=== PATIENT | male | born 1945 | race Caucasian/White ===

== ENCOUNTER 2016-08-03 15:16 | Emergency (ER) | payer MEDICARE, BC ==
[~2016-08-03] VITALS: Ht 175.3 cm; Wt 112.0 kg
[2016-08-03] MEDS ORDERED: PANTOPRAZOLE SO40 MG PO (17:17)
[2016-08-03] MEDS ORDERED: METOPROL TAR100 MG PO (17:17)
[2016-08-03] MEDS ORDERED: AMLODIPINE5 MG PO (17:18)
[2016-08-03] MEDS ORDERED: DOCUSATE CAL240 MG PO (17:18)
[2016-08-03] MEDS ORDERED: TRAZODONE50 MG PO (17:18)
[2016-08-03] MEDS ORDERED: C 250 PO (17:18)
[2016-08-03] MEDS ORDERED: DIGOXIN0.125 MG PO (17:18)
[2016-08-03] MEDS ORDERED: FINASTERIDE5 MG PO (17:19)
[2016-08-03] MEDS ORDERED: FERROUS SULF325 M2 PO (17:19)
[2016-08-03] MEDS ORDERED: LAMICTAL ODT100 MG PO (17:19)
[2016-08-03 18:05] LABS: HEMATOCRIT 44.3 % (39.0-50.0); HEMOGLOBIN 13.5 g/dl (14.0-18.0); IMMATURE GRANULOCYTES 0.7 % (0.0-1.0); MEAN CELL VOLUME 79.4 fL CALC (80.0-100.0); MEAN CORPUSCULAR HGB 24.2 pG CALC (26.0-32.0); MEAN CORPUSCULAR HGB CONC 30.5 g/L CALC (32.0-36.0); NEUT# 5.13 thou/uL (1.82-7.42); RED BLOOD COUNT 5.58 mill/uL (4.70-6.10)
[2016-08-03 18:06] LABS: URINE BILIRUBIN - DIPSTICK NEGATIVE (NEGATIVE); URINE BLOOD DIPSTICK NEGATIVE (NEGATIVE); URINE CLARITY CLEAR; URINE COLOR YELLOW; URINE GLUCOSE - DIPSTICK NEGATIVE (NEGATIVE); URINE KETONE NEGATIVE (NEGATIVE); URINE LEUK ESTERASE NEGATIVE (NEGATIVE); URINE NITRITE - DIPSTICK NEGATIVE (Negative); URINE PH 5.5 (4.5-8.0); URINE PROTEIN - DIPSTICK TRACE mg/dL (NEG-TRACE); URINE UROBILINOGEN - DIPSTICK 0.2 E.U./dL (0.2)
[2016-08-03 18:39] LABS: ALBUMIN 4.1 g/dL (3.2-5.0); ALKALINE PHOSPHATASE 73 u/l (38-126); ANION GAP 18 (6-22 (CALC)); BILIRUBIN, TOTAL 0.5 mg/dL (0.0-1.4); BUN 13 mg/dL (8-23); BUN/CREATININE RATIO 15 (12-20 (CALC)); CALCIUM 9.6 mg/dL (8.4-10.2); CARBON DIOXIDE 30 mmol/l (22-30); CHLORIDE 99 mmol/l (95-108); CREATININE 0.9 mg/dL (0.7-1.3); GFR > 60 ML/MIN (>=60 (CALC)); GFR FOR AFR.AMER. > 60 ML/MIN (>=60 (CALC)); GLUCOSE 100 mg/dL (82-115); POTASSIUM 4.2 mmol/l (3.5-5.1); SGOT/AST 29 u/l (19-48); SGPT/ALT 39 u/l (11-66); SODIUM 143 mmol/l (137-146); TOTAL PROTEIN 7.2 g/dL (6.3-8.2)
[2016-08-03] MEDS ORDERED: LOMOTIL2.5 MG PO (18:52)
[2016-08-03 19:00] VITALS: BP 152/72
== END 2016-08-03 19:30 | disposition home or self-care (01) ==
LOC: ED 15:16
PROVIDERS: Emergency Medicine
DX: B34.9 Viral infection, unspecified (principal); R19.7 Diarrhea, unspecified; R10.9 Unspecified abdominal pain; I10 Essential (primary) hypertension